=== PATIENT | female | born 1945 ===

== ENCOUNTER 2023-01-25 10:00 | Outpatient (AMB) | payer MEDICARE, SELFPAY ==
--- NOTE | 2023-01-25 10:23 | HO.SPINEOV ---
Intake Intake Visit Reasons: spinal stenosis Intake Note: Ms. Melchor is here today c/o severe low back pain. MRI done @ [facility]/brought disc. [employer] History Professor Required: No Allergies Penicillins Allergy (Mild, Verified 01/25/23 10:29) Castro Assessment & Plan Assessment & Plan (1) Lumbar stenosis: Code(s): M48.061 - Spinal stenosis, lumbar region without neurogenic claudication Plan Dear colleague, Thank you for referring Umm to our office today. She is a pleasant 77 y/o F who comes in today with a CC of low back pain, without any significant radiation of symptoms down the legs. She states that her pain began several years ago and has gradually worsened as years progressed. She also states that she has some difficulty with prolonged ambulation, but feels her back pain is her worst symptom. She has tried many inuv-gpo-fahrddv remedies in order to control her pain including tylenol, ibuprofen, rest, ice, heat, and pain patches. She has also been seen at [facility] for multiple low back injections. She reports some relief (3-4 days) with epidural injections, but cannot remember what level she had these injections at. She states that although she does feel restricted she is able to accomplish all of her ADLs, volunteers at [employer], and is able to care for herself. She does report that she needs to stabilize herself on a shopping cart in order to complete her grocery shop, and feels she is more comfortable flexed over rather than standing upright. PMH: High blood pressure, sleep apnea, aortic aneurysm, high cholesterol, osteoporosis, hypothyroid, macular degeneration, osteoarthritis. She has had radical mastectomy, breast implantation, total knee replacement (R), shoulder replacement (R&L). Social hx: Patient does not smoke, reports no substance use. Medications: Losartan, levothyroxine, amlodipine, atorvastatin, vitamin-C, calcium, turmeric, melatonin, Tylenol. Allergies: Penicillin. Physical exam: Mobility / function: Patient ambulates well, can rise from a seated position without difficulty. Sensation: Grossly intact CN: II-XII grossly intact. Strength Testing Upper Extremities: - Deltoid 5/5 right 5/5 left - Biceps 5/5 right 5/5 left - Triceps 5/5 right 5/5 left - Wrist Ext 5/5 right 5/5 left - Wrist Flex 5/5 right 5/5 left - Hand inspector balance truing 5/5 right 5/5 left - Interossei 5/5 right 5/5 left Strength Testing Lower Extremities: - Hip flexion 5/5 right 5/5 left - Knee extension 5/5 right 5/5 left - Dorsiflexion 5/5 right 5/5 left - Plantar flex 5/5 right 5/5 left - EHL 5/5 right 5/5 left Reflexes: - Biceps Right - 2+ Left - 2+ - Triceps Right - 2+ Left - 2+ - Patellar Right - 2+ Left - 2+ - Achilles Right - 2+ Left - 2+ - Plantar Right - 2+ Left - 2+ (-) Galo?s sign (-) Clonus Imaging review: MRI of lumbar spine completed 10/20/22 shows very mild spondylolisthesis at L4-5, L5-S1. Severe central canal stenosis at L3-4 and L4-5. Compression of bilateral nerve roots noted at these levels. X-ray of the lumbar spine shows no instability. Impression: Umm is a 77-year-old female comes in with a chief complaint of longstanding significant low back pain, and mild-moderate neurogenic claudication. She has story that is classic for spinal stenosis, which includes relief of symptoms with spine flexion in increased symptoms of spine extension. She has previously been treated at [facility] with epidural injections (x 3) which she found to be helpful for a few days before wearing off. She is now at a point where she feels like her symptoms are beginning to affect her daily life and she would like to find some kind of long-term permanent solution for her low back pain and difficulty with ambulation. After reviewing her MRI as described above, and discussing the case with Dr. Tatum, he offered her a L3-4, L4-5 midline sparing laminotomy. She will be tentatively scheduled for March 21, 2023 and will need to obtain medical clearance from her primary care physician before this date. Umm was given risk and benefits of surgery including but not limited to infection, hematoma, nerve injury, durotomy, weakness, bowel/bladder injury, & persistent pain. We also discussed the option to continue with conservative treatment and she wishes to proceed with surgery. She is aware she should stop any Motrin / Aspirin 7 days prior to surgery. She reports being on no anticoagulation medications. All questions were answered to the best of our ability. If there is anything about this patients medical history that we have overlooked or concerns you have about us proceeding with surgery we would appreciate any input you can offer. Thank you for allowing us to care for your patient. The total time spent with this visit with this patient was 60 minutes reviewing history, physical exam, MRI / X-ray imaging review, and implementation of treatment plan or further diagnostic testing. Jeff Tatum MD,PhD [facility] Orders: Orders XR lumbar spine 4V min Today M48.061 - Spinal stenosis, lumbar region without neurogenic claudication Coding Level of Care Code New Pt Level 5 (02322) Diagnoses Lumbar stenosis M48.061
== END 2023-01-25 12:05 | disposition home or self-care (01) ==
PROVIDERS: PCP Internal Medicine; Referring Provider Physician Assistant; Visit Provider Neurological Surgery
DX: M48.061 Spinal stenosis, lumbar region without neurogenic claudication (principal)
CPT/HCPCS: 99205

== ENCOUNTER 2023-01-25 10:00 | Outpatient (REF) | payer MEDICARE, SELFPAY | END 2023-01-25 10:01 | disposition home or self-care (01) | LOC: HO.HOSX 10:00 | PROVIDERS: Visit Provider Neurological Surgery | DX: M48.061 Spinal stenosis, lumbar region without neurogenic claudication (principal) | CPT/HCPCS: 72110 ==

== ENCOUNTER 2023-03-21 08:01 | Day surgery (SDC) | payer MEDICARE, SELFPAY ==
--- NOTE | 2023-03-07 | ECG_ITS ---
Test Reason : PREOP Blood Pressure : / mmHG Vent. Rate : 071 BPM Atrial Rate : 071 BPM P-R Int : 250 ms QRS Dur : 084 ms QT Int : 370 ms P-R-T Axes : 058 -26 013 degrees QTc Int : 402 ms Sinus rhythm with 1st degree A-V block Left axis deviation Abnormal ECG No previous ECGs available Referred By: Aliya Wang Electronically Signed By:JAYDA MINAYA MD
[2023-03-07 12:16] VITALS: BP 103/58; PULSE 84; RESP 16; O2SAT 95; BMI 34.6
--- NOTE | 2023-03-07 12:49 | P.CONAN_ITS ---
Documented by User: Aliya Wang NP 03/20/23 10:15 HPI - Anesthesia Eval Consult details Narrative: 77yo F for L3-4,L4-5 Midline Sparing Laminotomy, 03/21/23 PCP cleared No recent illness No CP/SOB with activity limited to back pain Right side Breast CA s/p mastectomy and chemo > 30 years ago. *NO IV/BP on RIGHT* ERIC with CPAP QHS AAA. Surveilence US ~Q3 years Hypothyroid PMFSH Active Problems Active Problems: All Active Problems (Updated 03/07/23 @ 12:36 by Dagmar Parson, RN) Lumbar stenosis (Acute) Past Medical History Medical History Lung nodule Former smoker Spinal stenosis Stage 3a chronic kidney disease History of chemotherapy ERIC on CPAP Hx of breast cancer Osteoarthritis Osteoporosis Hypothyroidism Macular degeneration Sleep apnea Elevated cholesterol AAA (abdominal aortic aneurysm) HTN (hypertension) Surgical History Surgical History S/P silicone breast implant History of carpal tunnel release History of esophagogastroduodenoscopy (EGD) Hx of appendectomy History of reconstruction of right breast Hx of colonoscopy History of right knee joint replacement History of total replacement of both shoulder joints Hx of mastectomy History of Problems with Anesthesia: Yes (1 x hx of failed extubation. On vent <24 hours. No problems with any other surgeries.) Social History Are you a primary pet care worker to a significant other at home: No Do you presently have visiting nurse or other home services: No Patient Tobacco Use Status: Former Tobacco user Quit Date: 1999 Tobacco use type: Cigarette Use of substances other than those prescribed or required for medical reasons: No Have you been hit, kicked, punched, or otherwise hurt by someone within the past year? If so, by whom?: No Are you DNR?: No Advance Directives: No Advance Directives Information Provided: Yes Advance Directives on File: No Nutrition Risks: Surgical patient >75years Meds Allergies Allergy/AdvReac Type Severity Reaction Status Date / Time adhesive tape Allergy Severe Blister Verified 03/21/23 08:43 Penicillins Allergy Severe Hives, Verified 03/21/23 08:43 itching Home Medications Medication Instructions Recorded Confirmed Last Taken Type albuterol sulfate 90 mcg/actuation 2 puff inhalation Q4-6H PRN 03/06/23 03/07/23 Unknown History aerosol inhaler Shortness Of Breath Or Wheezing amlodipine 2.5 mg tablet 2.5 mg PO DAILY 03/06/23 03/21/23 03/21/23 History atorvastatin 20 mg tablet 10 mg PO BEDTIME 03/06/23 03/07/23 Unknown History levothyroxine 137 mcg tablet 137 mcg PO DAILY 03/06/23 03/21/23 03/21/23 History losartan 100 1 tab PO DAILY 03/06/23 03/06/23 Unknown History mg-hydrochlorothiazide 25 mg tablet tramadol 50 mg tablet 50 mg PO Q6H PRN Pain 03/06/23 03/06/23 Unknown History Probiotic 1 cap PO DAILY 03/07/23 03/07/23 Unknown History acetaminophen 500 mg capsule 1,000 mg PO QID PRN Pain 03/07/23 03/07/23 Unknown History ascorbic acid (vitamin C) 1,000 mg 1,000 mg PO DAILY 03/07/23 03/07/23 Unknown History tablet (Vitamin C) calcium carbonate 600 mg calcium 600 mg PO BID 03/07/23 03/07/23 Unknown History (1,500 mg) tablet (Calcium) denosumab 60 mg/mL subcutaneous 60 mg subcut [id number] 03/07/23 03/07/23 01/20/23 10:00 History syringe (Prolia) glucosam 750 mg-chondroi 100 1 tab PO DAILY 03/07/23 03/07/23 Unknown History mg-hyalur 1.65 mg-CF borate 108 mg tablet (Move [employer]) melatonin 10 mg tablet 10 mg PO BEDTIME PRN Insomnia 03/07/23 03/07/23 Unknown History omega 6-cjk-xgt-fish oil 1,200 mg 1 cap PO BID 03/07/23 03/07/23 Unknown History (144 mg-216 mg) capsule (Fish Oil) tumeric 100 mg-jose 150 mg-olive 2 cap PO BID 03/07/23 03/07/23 Unknown History 50 mg-oreg 150 mg-caprylate capsule Exam Exam Date and Time: March 07, 2023 1249 Height,Weight and Vital Signs: Height 5 ft 0.5 in Weight 81.647 kg Last Vital Signs Pulse 84 03/07/23 12:16 Resp 16 03/07/23 12:16 BP 103/58 L 03/07/23 12:16 Pulse Ox 95 03/07/23 12:16 O2 Del Method Room Air 03/07/23 12:16 Pertinent Lab Results Pertinent Lab Results: Outside labs per PCP clearance note Narrative Narrative: EKG 02/2023 Vent. Rate : 071 BPM Atrial Rate : 071 BPM P-R Int : 250 ms QRS Dur : 084 ms QT Int : 370 ms P-R-T Axes : 058 -26 013 degrees QTc Int : 402 ms Sinus rhythm with 1st degree A-V block Left axis deviation Abnormal ECG No previous ECGs available Airway Mallampati Class: II TM Dist: >3cm Neck ROM: Full Loose/Missing/Broken Teeth: No Heart: RRR Lungs: CTAB Assessment and Plan Assessment Anesthesia Assessment: Anesthesia Plan Discussed and PAT Visit Final Anesthetic Review History of Problems with Anesthesia: Yes (1 x hx of failed extubation. On vent <24 hours. No problems with any other surgeries.) Documented by User: Patsy Yousif MD 03/21/23 10:07 [facility] Active Problems Active Problems: All Active Problems (Updated 03/07/23 @ 12:36 by Dagmar Parson, RN) Lumbar stenosis (Acute) AAA 3.5cm. 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 Uses CPAP Lumbar XR- abdominal surgical clips only abdominal surgery appendectomy Hard of hearing S/p Right mastectomy. No IV, BP right UE Past Medical History Medical History Lung nodule Former smoker Spinal stenosis Stage 3a chronic kidney disease History of chemotherapy ERIC on CPAP Hx of breast cancer Osteoarthritis Osteoporosis Hypothyroidism Macular degeneration Sleep apnea Elevated cholesterol AAA (abdominal aortic aneurysm) HTN (hypertension) Family History Family history of problems with anesthesia: No Surgical History Surgical History S/P silicone breast implant History of carpal tunnel release History of esophagogastroduodenoscopy (EGD) Hx of appendectomy History of reconstruction of right breast Hx of colonoscopy History of right knee joint replacement History of total replacement of both shoulder joints Hx of mastectomy History of Problems with Anesthesia: Yes (1 x hx of failed extubation. On vent <24 hours. Patient states had seizure during anesthesia.No problems with any other surgeries. ) Social History Are you a primary pet care worker to a significant other at home: No Do you presently have visiting nurse or other home services: No Patient Tobacco Use Status: Former Tobacco user Quit Date: 1999 Tobacco use type: Cigarette Use of substances other than those prescribed or required for medical reasons: No Have you been hit, kicked, punched, or otherwise hurt by someone within the past year? If so, by whom?: No Are you DNR?: No Advance Directives: No Advance Directives Information Provided: Yes Advance Directives on File: No Nutrition Risks: Surgical patient >75years Meds Allergies Allergy/AdvReac Type Severity Reaction Status Date / Time adhesive tape Allergy Severe Blister Verified 03/21/23 08:43 Penicillins Allergy Severe Hives, Verified 03/21/23 08:43 itching Home Medications Medication Instructions Recorded Confirmed Last Taken Type albuterol sulfate 90 mcg/actuation 2 puff inhalation Q4-6H PRN 03/06/23 03/07/23 Unknown History aerosol inhaler Shortness Of Breath Or Wheezing amlodipine 2.5 mg tablet 2.5 mg PO DAILY 03/06/23 03/21/23 03/21/23 History atorvastatin 20 mg tablet 10 mg PO BEDTIME 03/06/23 03/07/23 Unknown History levothyroxine 137 mcg tablet 137 mcg PO DAILY 03/06/23 03/21/23 03/21/23 History losartan 100 1 tab PO DAILY 03/06/23 03/06/23 Unknown History mg-hydrochlorothiazide 25 mg tablet tramadol 50 mg tablet 50 mg PO Q6H PRN Pain 03/06/23 03/06/23 Unknown History Probiotic 1 cap PO DAILY 03/07/23 03/07/23 Unknown History acetaminophen 500 mg capsule 1,000 mg PO QID PRN Pain 03/07/23 03/07/23 Unknown History ascorbic acid (vitamin C) 1,000 mg 1,000 mg PO DAILY 03/07/23 03/07/23 Unknown History tablet (Vitamin C) calcium carbonate 600 mg calcium 600 mg PO BID 03/07/23 03/07/23 Unknown History (1,500 mg) tablet (Calcium) denosumab 60 mg/mL subcutaneous 60 mg subcut [id number] 03/07/23 03/07/23 01/20/23 10:00 History syringe (Prolia) glucosam 750 mg-chondroi 100 1 tab PO DAILY 03/07/23 03/07/23 Unknown History mg-hyalur 1.65 mg-CF borate 108 mg tablet ([employer]) melatonin 10 mg tablet 10 mg PO BEDTIME PRN Insomnia 03/07/23 03/07/23 Unknown History omega 3-box-uuq-fish oil 1,200 mg 1 cap PO BID 03/07/23 03/07/23 Unknown History (144 mg-216 mg) capsule (Fish Oil) tumeric 100 mg-jose 150 mg-olive 2 cap PO BID 03/07/23 03/07/23 Unknown History 50 mg-oreg 150 mg-caprylate capsule Exam Height,Weight and Vital Signs: Height 5 ft 0.5 in Weight 81.647 kg Last Vital Signs Pulse 84 03/07/23 12:16 Resp 16 03/07/23 12:16 BP 103/58 L 03/07/23 12:16 Pulse Ox 95 03/07/23 12:16 O2 Del Method Room Air 03/07/23 12:16 Vital Signs Temp Pulse Resp BP Pulse Ox O2 Del Method 03/21/23 09:26 97.0 F 77 16 113/49 L 95 Room Air Airway Loose/Missing/Broken Teeth: No (Denies broken, loose, missing teeth) Assessment and Plan Assessment Anesthesia Assessment: Chart Reviewed Final Anesthetic Review Family History of Problems with Anesthesia: No History of Problems with Anesthesia: Yes (1 x hx of failed extubation. On vent <24 hours. Patient states had seizure during anesthesia.No problems with any other surgeries. ) NPO: Yes ASA Class: III Final Preanesthetic Review: No Changes in Pt Med Stat, Meds/Allgs Chart Reviewed, Consent Obtained/Reviewed and Anes Risks/Benef Reviewed Patient Risk: Intermediate Procedure Risk: Low Assessment/Block/Sedation in SS: Assess/Block/Sedation-SS Anesthetic Plan Anesthetic Plan: GA Disposition: Standard PACU
[2023-03-21] VITALS (7 sets, daily range): BP systolic 98–113; BP diastolic 31–49; PULSE 65–82; RESP 14–17; TEMP 36.1–36.3; O2SAT 95–99; BMI 33.8
--- NOTE | ~2023-03-21 | FL_ITS ---
EXAMINATION: XR FLUOROSCOPY WITH IMAGES CLINICAL INFORMATION: L3-L4, L4-L5 midline sparing laminectomy. COMPARISON: Lumbar spine x-ray January 2020 TECHNIQUE: Fluoroscopy Supervised By: Dr. Cedric Tatum. Fluoroscopy Time: 0.0 minutes. Cumulative Dose: 4.12 mGy. DAP: 0.800 Gycm2. Images: 2. FINDINGS: Images demonstrate surgical instruments and probe posterior to the L4 and L5 vertebrae. FL/FL guidance in OR IMPRESSION: Fluoroscopy guidance for lumbar spine surgery
--- NOTE | 2023-03-21 07:29 | P.HPSUR_ITS ---
Pre-Procedural Eval Section A Date of Service: 03/21/23 The patient is an INPATIENT: No Changes since office visit: No Cold of Flu in the past 2 weeks, No New Medical Problems, No Changes in Medication and No Patient answered all questions The History & Physical has been completed within 30 days and I have reviewed it.: No Section B Chief Complaint: Spinal stenosis, lumbar region without neurogenic Allergies: Allergies Allergy/AdvReac Type Severity Reaction Status Date / Time adhesive tape Allergy Severe Blister Verified 03/07/23 12:03 Penicillins Allergy Severe Hives, Verified 03/07/23 12:02 itching Review of Systems Sugical H&P ROS: Negative: Constitution, Cardiovascular, Respiratory, Neuro logical, Psychiatric, Hem-Onc, Allergic/Immunologic, Gastrointestinal, Genitourinary, Musculoskeletal, Integumentary, Endocrine and Eyes/Ears/Nose/Throat Exam Surgical H&P Exam: Not Evaluated: HEENT, Not Evaluated: Heart, Not Evaluated: Lungs, Not Evaluated: Extremities, Not Evaluated: Abdomen, Not Evaluated: Skin and Not Evaluated: Neurological Plan Diagnosis/Plan: Unchanged I have reviewed the history and physical and performed a pertinent physical examination on my patient. No changes have occurred unless specified. L3-5 midline sparring laminectomy Time Spent With Patient Time: Total time managing care of this patient today _12___ minutes.
[2023-03-21] MEDS: Gabapentin 300 MG CAPSULE PO (09:20)
[2023-03-21] MEDS: methocarbamoL 750 MG TABLET PO (09:20)
[2023-03-21] MEDS: Lactated Ringers 1,000 ML 100 ML IVCONT (09:20)
[2023-03-21] MEDS: vancomycin HCL 1,000 MG in 0.9 % Sodium Chloride 250 ML 270 MG IV (09:20)
--- NOTE | 2023-03-21 12:48 | PM.DS ---
DS: Providers Provider Date of Service: 03/21/23 Date of discharge: 03/21/23 Primary care physician: Belgica Solis MD Admitting clinician: Cedric Tatum DS: Diagnosis Discharge Diagnosis (1) Lumbar stenosis: Status: Acute DS: Summary Time Attestation Discharge coordination time: Less than 30 minutes Quality: Safe Use of Opioids Does Pt have an Active Cancer Diagnosis on the Problem List?: No Quality: Stroke Does the patient have a stroke diagnosis?: No Physical Exam Vital Signs: Vital Signs: Last Vital Signs Temp 97.0 F 03/21/23 09:26 Pulse 77 03/21/23 09:26 Resp 16 03/21/23 09:26 BP 113/49 L 03/21/23 09:26 Pulse Ox 95 03/21/23 09:26 O2 Del Method Room Air 03/21/23 09:26 BMI result Body Mass Index 33.8 Discharge Plan Discharge Patient Disposition: Home, Self-Care Referrals: Belgica Solis MD [Primary Care Provider] - 1 Week Discharge Medications: New docusate sodium [Colace] 100 mg capsule 100 mg PO BID Qty: 20 0RF oxycodone 5 mg tablet 5 mg PO Q4H PRN (Reason: pain) Qty: 30 0RF Rx Instructions: Partial Fill upon patient request. Continued levothyroxine 137 mcg tablet 137 mcg PO DAILY atorvastatin 20 mg tablet 10 mg PO BEDTIME amlodipine 2.5 mg tablet 2.5 mg PO DAILY losartan-hydrochlorothiazide 100-25 mg tablet 1 tab PO DAILY albuterol sulfate 90 mcg/actuation HFA aerosol inhaler 2 puff inhalation Q4-6H PRN (Reason: Shortness Of Breath Or Wheezing) ascorbic acid (vitamin C) [Vitamin C] 1,000 mg Tablet 1,000 mg PO DAILY calcium carbonate [Calcium 600] 600 mg calcium (1,500 mg) Tablet 600 mg PO BID acetaminophen 500 mg Capsule 1,000 mg PO QID PRN (Reason: Pain) omega 0-joq-kaq-fish oil [Fish Oil] 1,200 (144-216) mg Capsule 1 cap PO BID Prolia 60 mg/mL Syringe 60 mg SUBCUT [id number] melatonin 10 mg Tablet 10 mg PO BEDTIME PRN (Reason: Insomnia) [employer] 750 mg-100 mg- 1.65 mg-108 mg Tablet 1 tab PO DAILY mxhhckm-dnkf-swwpo-oreg-capryl 100 mg-150 mg- 50 mg-150 mg Capsule 2 cap PO BID Probiotic 1 cap PO DAILY Discontinued tramadol 50 mg tablet 50 mg PO Q6H PRN (Reason: Pain) Discharge Orders: Discharge Order (Routine); Ordered 03/21/23 Ordered By: Cordell De Luna Diet: Advance to usual diet Activity on Discharge: As tolerated Activity Restrictions/Additional Instructions: After your spinal surgery we ask you to observe the following restrictions/guidelines: Activity: It is normal to feel some discomfort as you increase your activity, but that will improve with time. We ask you avoid heavy lifting or acitivities that cause pain. As a general rule, 8lbs is a safe limit for lifting right after surgery. Walk as much as you feel comfortable but not to exhaustion. You will feel extra tired the first few days after surgery. Stay well hydrated. It is OK to walk up and down stairs You may return to driving when you are off narcotics (such as vicodin, oxycodone, dilaudid, etc), and you are back to normal functional capacity. If you have any concerns please check with office before driving. Return to work is specific to each patient and each surgery, so please speak with your doctor/PA at first follow up. Please bring paperwork such as FMLA at that time if you need it filled out. Medications: For optimum pain control, it is best to start with a combination of 500 mg of Tylenol every 4 hours with 600 mg of Motrin every 8 hours, and use narcotics as needed in between for breakthrough pain. We will give you a short supply of narcotics after surgery (usually one weeks worth). If you need more please call the office but do not use more than prescribed. You will need to give our office 48 hours notice if you need narcotics refilled and we do not fill narcotics on weekends or evenings. If you are on a narcotic, it is a good idea to take a stool softener such as colace or senna to avoid constipation If you take blood thinner such as aspirin, Plavix, Coumadin, Effient, Eliquis etc for conditions such as Afib, DVT, Pulmonary embolus, coronary disease, stents etc please speak with your surgeon about specific details as to when you can resume these medications. You can resume NSAIDs on post op day 1 (eg: Motrin, Naproxen, etc). Follow up: Please call the office, , after surgery to arrange a 3 week follow up for wound check. Wound Care: You may remove your dressing on the first day after surgery. You may leave open to air. Please do not remove the steri strips underneath. they will fall off on their own in one week. IT IS NORMAL FOR THE WOUND TO OOZE OR BE BLOODY FOR A FEW DAYS AFTER SURGERY. IF THIS HAPPENS JUST PLACE NEW DRESSING OVER IT TO AVOID STAINING CLOTHES. You may shower on post op day # 1 We ask that you do not let the water soak the wound. If it does get wet, just towel dry lightly. Please do not scrub your incision or place any type of chemical/ointment on the wound. No tub baths, pools or jacuzzis for one month. If you have any leaking or redness from your wound, or fevers, please call office
--- NOTE | 2023-03-21 13:25 | P.OP_ITS ---
Operative Note Operative Note Date of Service: 03/21/23 Narrative: Preoperative Diagnosis: L3-4 and L4-5 spinal stenosis/lateral recess stenosis Operation: L3-4 and L4-5 Laminotomy, Partial facetectomy and foraminotomy with use of microscope Consent Informed Consent was obtained for this operation. I have explained the nature, purpose and benefits of the operation. I have discussed the risks and benefit of the operation including possible complications or adverse events with js ent/family. Alternative(s) were discussed with the patient with their relative benefits and risks as well as the consequences of not accepting the operation were included in obtaining consent. Surgeon: ROME FLORES MD, PHD Procedure Assisted By: Cordell Oconnor Description of Procedure This 77-year-old female suffering from back pain and neurogenic claudication due to severe central spinal stenosis at L3-4 and L4-5. The patient was offered a decompression. The procedure complications were explained. The patient was consented. The patient was brought to the operating room and endotracheally intubated. The patient was turned in prone position on the Dwayne frame. Prep and drape was done followed by timeout. The Physician visitor services information assistant provided access. A mid lumbar incision was made followed by release of the paravertebral muscle on the left side to expose the L3-4 and L4-5 lamina and facet joints. An intraoperative x-ray was obtained to confirm the correct level. The microscope was brought in. I took over the procedure. The high-speed drill was used to do a left L3-4 and L4-5 laminotomy until flavum ligament was reached. A #2 Kerrison was used to expand the laminotomy near flush to the pedicles and to include a partial facetectomy. The flavum ligament was opened at L4-5 and resected with a #3 Kerrison to decompress the underlying thecal sac. The flavum ligament was removed to decompress the lateral recess and the exiting L5 nerve root the patient was turned contralaterally and the spinous process of L4-5 was undercut and in this way I was able to reach the other side and remove the flavum ligament and to decompress the exiting nerve root in the lateral recess. A similar procedure was performed at L3-4. Again significant hypertrophied flavum ligament was encountered and resected. The lateral recess was offered on the left side and the spinous process was undercut in order for me to reach the contralateral side and to decompress the nerve structure contralaterally. A long nerve hook could be easily passed along the medial side of the pedicles as a sign of adequate decompression. The microscope was removed. Hemostasis was done. The physician visitor services information assistant close the Incision in 2 layers. Steri-Strips were used to approximate incision. An OpSite with Tegaderm was used to cover the incision. All sponge needle counts were correct. Patient was extubated and transported in stable is to recovery room. Anesthesia: General Estimated Blood Loss (ml): 20 mL Complications: None Duration of Surgery: Under 60 Minutes Postoperative Plan: Discharge to home
== END 2023-03-21 14:57 | disposition home or self-care (01) ==
PROVIDERS: PCP Internal Medicine; Visit Provider Neurological Surgery
PROC: (CPT 63047; principal; 2023-03-21 10:40)
DX: M48.061 Spinal stenosis, lumbar region without neurogenic claudication (principal); G47.33 Obstructive sleep apnea (adult) (pediatric); I10 Essential (primary) hypertension; I71.40 Abdominal aortic aneurysm, without rupture, unspecified; E78.00 Pure hypercholesterolemia, unspecified; E03.9 Hypothyroidism, unspecified; M81.0 Age-related osteoporosis without current pathological fracture; Z85.3 Personal history of malignant neoplasm of breast; Z79.899 Other long term (current) drug therapy; Z88.8 Allergy status to other drugs, medicaments and biological substances
CPT/HCPCS: 63047; 63048; 93005; J0131; J1100; J1170; J2371; J2405; J3010; J3370

== ENCOUNTER → 2023-03-21 08:01 | Outpatient (BNV) | payer MEDICARE, SELFPAY | PROVIDERS: PCP Internal Medicine; Visit Provider Physician Assistant | DX: M48.061 Spinal stenosis, lumbar region without neurogenic claudication (principal) | CPT/HCPCS: 63047; 63048; 99499 ==

== ENCOUNTER 2023-04-11 14:24 | Outpatient (AMB) | payer MEDICARE, SELFPAY ==
--- NOTE | 2023-04-11 14:36 | A.OFFVIS_ITS ---
Intake Intake Visit Reasons: 1st post op Special Education Professional Required: No Allergies adhesive tape Allergy (Severe, Verified 03/21/23 08:43) Blister Penicillins Allergy (Severe, Verified 03/21/23 08:43) Hives, itching PFSH Medical History Lung nodule Former smoker Spinal stenosis Stage 3a chronic kidney disease History of chemotherapy ERIC on CPAP Hx of breast cancer Osteoarthritis Osteoporosis Hypothyroidism Macular degeneration Sleep apnea Elevated cholesterol AAA (abdominal aortic aneurysm) HTN (hypertension) Surgical History S/P silicone breast implant History of carpal tunnel release History of esophagogastroduodenoscopy (EGD) Hx of appendectomy History of reconstruction of right breast Hx of colonoscopy History of right knee joint replacement History of total replacement of both shoulder joints Hx of mastectomy Social History Are you a primary family day carer to a significant other at home: No Do you presently have visiting nurse or other home services: No Comment: all counts correct Patient Tobacco Use Status: Former Tobacco user Quit Date: 1999 Tobacco use type: Cigarette Assessment & Plan Assessment & Plan (1) S/P spinal surgery: Code(s): Z98.890 - Other specified postprocedural states Plan Procedure: L3-4 and L4-5 Laminotomy, Partial facetectomy and foraminotomy Umm comes in today for her 1st postoperative visit. She reports she is very satisfied with the surgery and feels much better than she did preoperatively. She reports she is up walking around and completing the majority of her ADLs. She reports that she no longer suffers from her low back pain with shooting pains into her legs. She did report mild pain directly after surgery the incision site, but overall feels this is resolved. No neurological deficits. Patient is able to ambulate well, rises from a seated position without difficulty. Incision sites are closed, well healing, with no signs of drainage. No need for routine follow-up with the patient, she may call the office in follow-up as needed. Jeff Tatum MD,PhD [facility] Coding Level of Care Code Global (39991) Diagnoses S/P spinal surgery Z98.890
== END 2023-04-11 14:46 | disposition home or self-care (01) ==
PROVIDERS: PCP Internal Medicine; Visit Provider Physician Assistant
DX: Z98.890 Other specified postprocedural states (principal)
CPT/HCPCS: 99024

== ENCOUNTER → 2023-04-11 14:24 | Outpatient (BNVA) | payer MEDICARE, SELFPAY | PROVIDERS: PCP Internal Medicine; Visit Provider Physician Assistant | DX: Z48.89 Encounter for other specified surgical aftercare (principal); Z98.890 Other specified postprocedural states | CPT/HCPCS: 99212 ==